=== PATIENT | female | born 1970 | race Caucasian/White ===

== ENCOUNTER → 2017-08-19 07:59 | Outpatient (CLI) | payer BC, SELFPAY ==
--- NOTE | 2017-08-19 08:02 | HPBI_ITS ---
MAMMOGRAPHY - BILATERAL DIAGNOSTIC REASON FOR EXAM: Female, 46 years old. History of dilated subareolar ducts. PERTINENT HISTORY: TECHNIQUE: Digital bilateral breast hung (3D mammographic acquisition) in the CC and MLO projections. 2-D mediolateral oblique (MLO) and craniocaudad (CC) views of both breasts were obtained. CAD: Full Field Digital Mammography with Computer Added Detection was performed. COMPARISON: Comparison is made with prior study dated August 11, 2016 and August 27, 2015. FINDINGS: Breast Composition: The breasts are extremely dense, which lowers the sensitivity of mammography. There are no dominant masses or suspicious calcifications. Stable bilateral benign appearing axillary lymph nodes. No other significant abnormalities are identified. There has been no significant change since the prior study. HPBI/DIAG MAMM W/CAD, BILAT IMPRESSION: Stable bilateral diagnostic mammogram. One year follow-up recommended. (A) ASSESSMENT CATEGORY: BIRADS Category 2: Benign. A letter regarding these results will be sent to the patient by the facility within 30 days. Approximately 10% of breast cancers are not detected by mammography. A normal mammogram should not delay biopsy of a clinically suspicious abnormality. Electronically Signed: Orion Guerra MD at 13:09 EST Tel [phone], Service support ,
== END ==
PROVIDERS: Family Provider Family Medicine; PCP Family Medicine; Visit Provider Family Medicine
DX: Z87.898 Personal history of other specified conditions (principal)
CPT/HCPCS: 77062; 77066; G0279

== ENCOUNTER → 2017-08-26 10:33 | Outpatient (CLI) | payer BC, SELFPAY ==
[2017-08-26 12:22] LABS: Absolute Lymphocyte Count 1.77 X10^3/ul (0.83-4.51); Absolute Neutrophil Count 4.5 X10^3/uL (2.0-7.7); Basophil# 0.02 X10^3/uL; Basophil% 0.3 % (0-1); Eosinophil# 0.15 X10^3/uL; Eosinophils% 2.1 % (0-5); Hematocrit 39.9 % (37-47); Hemoglobin 13.3 g/dl (12.0-15.0); Lymphocyte # 1.77 X10^3/ul (4.0); Lymphocyte % 25.1 % (19-41); Mean Corp Hgb Conc 33.3 g/gl (32-36); Mean Corpuscular Hgb 31.1 pg (27.0-32.0); Mean Corpuscular Volume 93.4 fL (81-99); Mean Platelet Vol. 10.5 fl (6.2-12.0); Monocyte# 0.59 X10^3/uL; Monocyte% 8.4 % (0-10); Neutrophil # 4.51 X10^3/uL (2.7-7.7); Platelet Count 243 K/mm3 (150-450); Red Blood Count 4.27 M/mm3 (4.2-5.4); White Blood Count 7.1 K/mm3 (4.4-11.0)
[2017-08-26 12:31] LABS: POSITIVE COUNT NO; POSITIVE DIFFERENTIAL NO; POSITIVE MORPHOLOGY NO
[2017-08-26 12:37] LABS: ALB/GLOB Ratio 0.8 RATIO (0.9-2.4); AST(SGOT) 15 U/L (15-37); Alanine Aminotransfer ALT/SGPT 19 U/L (13-56); Albumin, Serum 3.6 g/dL (3.2-5.0); Alkaline Phosphatase 47 U/L (45-117); Anion Gap 8 (5-15); BUN 17 mg/dL (7-18); Calcium,Total 8.6 mg/dL (8.5-10.1); Chloride 105 mmol/L (98-107); Cholesterol 148 mg/dL (200); Creatinine, Serum 0.81 mg/dL (0.55-1.02); EST Glomerular Filtration Rate 82 mL/min (>60); Est Glom Filt Rate - Afr Amer 99 mL/min (>60); Globulin 4.3 g/dL (2.2-4.2); Glucose 87 mg/dL (74-106); High Density Lipoprotein 65 mg/dL; Potassium 3.9 mmol/L (3.5-5.1); Protein, Total 7.9 g/dL (6.4-8.2); Sodium Level 139 mmol/L (136-145); Thyroid Stim Hormone (TSH) 1.35 uIU/mL (0.358-3.74); Triglycerides 74 mg/dL; Very Low Density Lipoprotein 15 mg/dL (5-40)
[2017-08-26 12:50] LABS: Erythrocyte Sedimentation Rate 30 mm/hr (0-20)
== END ==
PROVIDERS: Family Provider Family Medicine; PCP Family Medicine; Visit Provider Family Medicine
DX: Z00.00 Encounter for general adult medical examination without abnormal findings (principal); R70.0 Elevated erythrocyte sedimentation rate
CPT/HCPCS: 36415; 80053; 80061; 84443; 85025; 85652

== ENCOUNTER → 2017-09-09 17:19 | Outpatient (CLI) | payer BC, SELFPAY ==
--- NOTE | 2017-09-09 17:21 | RAD_ITS ---
STUDY: X-RAY CHEST REASON FOR EXAM: Female, 46 years old. Cough. TECHNIQUE: PA and lateral views of the chest. COMPARISON: August 17, 2013. FINDINGS: The lungs are clear and expanded. There is no demonstrated pleural abnormality. Normal size heart. Normal mediastinum and rafita. Normal visualized pulmonary arteries. Normal visualized aortic arch and descending thoracic aorta. Normal visualized thoracic spine. Normal visualized ribs, clavicles, and shoulders. There is no demonstrated abnormality of the visualized soft tissue structures of the upper abdomen. RAD/Chest PA and Lateral IMPRESSION: Normal x-ray examination of the chest. Electronically Signed: Jayson Urban MD at 16:03 EST , Service support ,
== END ==
PROVIDERS: Family Provider Family Medicine; PCP Family Medicine; Visit Provider Family Medicine
DX: R05 Cough (principal)
CPT/HCPCS: 71046

== ENCOUNTER → 2017-09-12 10:50 | Outpatient (CLI) | payer BC, SELFPAY ==
--- NOTE | 2017-09-12 10:57 | CT_ITS ---
STUDY: CT ABDOMEN AND PELVIS WITHOUT CONTRAST REASON FOR EXAM: Female, 46 years old. Elevated sedimentation rate. History of right oophorectomy. RADIATION DOSAGE (If Supplied By Facility): CTDIvol = ( 6.89 ) mGy, DLP = ( 366.70 ) mGycm TECHNIQUE: Transaxial images were obtained from the dome of the diaphragm to the symphysis pubis without oral contrast, and without intravenous contrast. Sagittal and coronal images were reconstructed. Individualized dose optimization techniques were used for this CT. COMPARISON: 12/17/2016. FINDINGS: The visualized lung bases are unremarkable. The visualized portions of the heart are within normal limits. Normal liver. Normal gallbladder and extrahepatic biliary system. Normal spleen. Normal pancreas. Normal bilateral adrenal glands. Normal right kidney. Normal left kidney. Normal visualized stomach. Normal small intestine. Normal colon. The appendix is visualized on axial images 126-137 and it appears normal.. Normal abdominal aorta. Normal inferior vena cava. There are small periaortic retroperitoneal lymph nodes which are normal in size and morphology. There is mild infiltration of central mesenteric fat and there are small shotty mesenteric lymph nodes in this region Normal urinary bladder. Contracted uterus is irregular, consistent with a leiomyomatous uterus. Normal abdominal wall. There are multilevel degenerative changes of the visualized lumbar spine. CT/Abdomen/Pelvis without Cont IMPRESSION: Mild infiltration of central mesenteric fat with a small shoddy lymph nodes, suggesting a low-grade mesenteritis. Leiomyomatous uterus. No evidence for diverticulitis or appendicitis. No demonstrated urinary calculi or hydronephrosis. Electronically Signed: Carl Jalloh MD at 6:52 EST , Service support ,
== END ==
PROVIDERS: Family Provider Family Medicine; PCP Family Medicine; Visit Provider Family Medicine
DX: D25.9 Leiomyoma of uterus, unspecified (principal); R70.0 Elevated erythrocyte sedimentation rate
CPT/HCPCS: 74176

== ENCOUNTER → 2017-09-21 08:36 | Outpatient (CLI) | payer BC, SELFPAY ==
--- NOTE | 2017-09-21 08:40 | RAD_ITS ---
PROCEDURE: SMALL BOWEL SERIES DATE OF EXAMINATION: September 21, 2017. INDICATION: Female, 46 years old. Elevated sedimentation rate. PHYSICIAN: Orion Guerra M.D. FLUOROSCOPY TIME (if supplied): (0:48) minutes/seconds TECHNIQUE: Radiographic and fluoroscopic images were taken of the small intestine following the ingestion of barium. COMPARISON: None. FINDINGS: A preliminary supine KUB was obtained. There is an unremarkable bowel gas pattern. Fecal material is present throughout the colon. The lung bases are unremarkable. The osseous structures are normal. The patient orally ingested approximately 12 ounces of thin barium Normal visualized fundus, body, and antrum of the stomach. Normal duodenal bulb, C-loop, and proximal jejunum. Normal visualized mucosal folds of the jejunum and ileum. There are no demonstrated dilatations, strictures, or masses of the small intestine. There is no mass displacement of the loops of small intestine. There is a normal motor pattern with barium reaching the colon within approximately 30 minutes. Spot films under fluoroscopic observation demonstrated a normal terminal ileum and ileocecal valve. RAD/Small Bowel Series Only IMPRESSION: Normal small bowel series. Electronically Signed: Orion Guerra MD at 13:39 EST Tel [phone], Service support ,
== END ==
PROVIDERS: Family Provider Family Medicine; PCP Family Medicine; Visit Provider Family Medicine
DX: R93.5 Abnormal findings on diagnostic imaging of other abdominal regions, including retroperitoneum (principal)
CPT/HCPCS: 74250

== ENCOUNTER → 2018-01-23 08:30 | Outpatient (CLI) | payer BC, SELFPAY ==
[2018-01-23 09:29] LABS: hCG Titer Quant., Serum 3 mIU/mL (<9 non-preg)
== END ==
PROVIDERS: Family Provider Family Medicine; PCP Family Medicine; Visit Provider Obstetrics & Gynecology
DX: N91.2 Amenorrhea, unspecified (principal)
CPT/HCPCS: 36415; 84702

== ENCOUNTER 2018-02-01 07:44 | Emergency (ER) | payer BC, SELFPAY ==
[2018-02-01] VITALS (7 sets, daily range): BP systolic 132–172; BP diastolic 72–92; PULSE 71–88; RESP 16–24; TEMP 36.8; O2SAT 99–100; BMI 24.6
--- NOTE | 2018-02-01 07:55 | US_ITS ---
STUDY: ULTRASOUND OF THE FEMALE PELVIS - COMPLETE REASON FOR EXAM: Female, 47 years old. Generalized intense pelvic pain and low back pain for 2 days. LMP: December 06, 2017. TECHNIQUE: Transvaginal TECHNICAL QUALITY: Adequate. COMPARISON: None. FINDINGS: The uterus is anteverted and is in a midline position. The uterus measures 7.9 cm x 6.8 cm x 4.5 cm. There is a Nabothian cyst of the cervix. The endometrium measures 1.1 mm in thickness, and is heterogeneous (striated). There is no demonstrated endometrial mass. There are 3 uterine fibroids. The largest measures 3.1 cm x 2.2 cm x 1.7 cm. I.U.D. - The patient does not have an I.U.D. The right ovary is visualized. The right ovary measures 4.9 cm x 4.1 cm x 3.9 cm. There is a 4.4 cm x 3.4 cm x 3 cm right ovarian cyst. Adjacent to this, there is a 4.8 cm x 3.1 Alex by 3.1 cm complex cystic mass. This may represent either an endometrioma or possible tubo-ovarian abscess. Clinical correlation is recommended. There is normal arterial and normal venous vascularity. The left ovary is non-visualized. There is minimal fluid in the cul-de-sac. The pre void volume of the bladder was 90 ml. The post void volume of the bladder was ml. Polycystic ovary disease: No. US/Transvaginal Non- IMPRESSION: Fibroid uterus. Findings suggestive of a right ovarian cyst as well as a complex cystic mass in the right ovary as described. Endometriosis or tubo-ovarian abscess should be ruled. Small amount of free fluid in the cul-de-sac. Electronically Signed: Orion Guerra MD at 10:15 EDT Tel [phone], Service support ,
--- NOTE | 2018-02-01 07:57 | ED.VISSUMM ---
- ER Visit Summary Date of Service: 02/01/18 Chief Complaint: Pelvic pain History of Present Illness: The patient is a 47 F presenting with pelvic pain and low back pain. She states this started yesterday but worsened this morning. She has had no vaginal bleeding. Her last menstrual period was 50 days ago. She is undergoing intermittent fertility treatments. She has a history of previous ovarian cyst. She did karate yesterday and was thrown a few times. She denies specific injury. She states she has had nausea for a few weeks. She denies vomiting or diarrhea. Denies urinary complaints. Physical Examination: Vitals are stable. Patient is afebrile. Alert no acute distress. HEENT exam is unremarkable. Neck is supple. Lungs are clear and equal bilaterally. Heart is regular rate and rhythm. Abdomen is soft bilateral lower quadrant tenderness, no rebound or guarding. Pelvic: No cervical motion tenderness, right adnexal tenderness. Back: bilateral lower lumbar paraspinal tenderness Extremities are unremarkable. Skin is warm and dry. No focal neurologic deficit. Remainder of exam is unremarkable. Emergency Department Course and Treatment: Patient is given morphine, Zofran. CBC, chemistries unremarkable. Urinalysis is unremarkable. HCG negative. Patient continues to have pain and was given Valium. Pelvic ultrasound shows Fibroid uterus. Findings suggestive of a right ovarian cyst as well as a complex cystic mass in the right ovary as described. Endometriosis or tubo-ovarian abscess should be ruled. Small amount of free fluid in the cul-de-sac. Discussed with Dr. Barraza her fertility specialist. She will be transferred [facility] ED by private vehicle for [employer] resident evaluation. Disposition: Transfer [facility] Impression: Right ovarian cystic mass This note was generated with [employer] dictation software. It may contain incorrect words, spelling, and punctuation that were not noted in review of the chart prior to signing ED Disposition - Plan for ED Patient: Disposition: Home or Assisted Living Chief Complaint: Other, Pain/Inj Referrals: Gerardo Parker MD [Primary Care Provider] -
--- NOTE | 2018-02-01 08:00 | ED.DCSUM_ITS ---
- ER Visit Summary Date of Service: 02/01/18 Chief Complaint: Pelvic pain History of Present Illness: The patient is a 47 F presenting with pelvic pain and low back pain. She states this started yesterday but worsened this morning. She has had no vaginal bleeding. Her last menstrual period was 50 days ago. She is undergoing intermittent fertility treatments. She has a history of previous ovarian cyst. She did karate yesterday and was thrown a few times. She denies specific injury. She states she has had nausea for a few weeks. She denies vomiting or diarrhea. Denies urinary complaints. Physical Examination: Vitals are stable. Patient is afebrile. Alert no acute distress. HEENT exam is unremarkable. Neck is supple. Lungs are clear and equal bilaterally. Heart is regular rate and rhythm. Abdomen is soft bilateral lower quadrant tenderness, no rebound or guarding. Pelvic: No cervical motion tenderness, right adnexal tenderness. Back: bilateral lower lumbar paraspinal tenderness Extremities are unremarkable. Skin is warm and dry. No focal neurologic deficit. Remainder of exam is unremarkable. Emergency Department Course and Treatment: Patient is given morphine, Zofran. CBC, chemistries unremarkable. Urinalysis is unremarkable. HCG negative. Patient continues to have pain and was given Valium. Pelvic ultrasound shows Fibroid uterus. Findings suggestive of a right ovarian cyst as well as a complex cystic mass in the right ovary as described. Endometriosis or tubo- ovarian abscess should be ruled. Small amount of free fluid in the cul-de-sac. Discussed with Dr. Barraza her fertility specialist. She will be transferred [facility] ED by private vehicle for [employer] resident evaluation. Disposition: Transfer [facility] Impression: Right ovarian cystic mass This note was generated with [employer] User [place] dictation software. It may contain incorrect words, spelling, and punctuation that were not noted in review of the chart prior to signing ED Disposition - Plan for ED Patient: Disposition: Home or Assisted Living Chief Complaint: Other, Pain/Inj Referrals: Gerardo Parker MD [Primary Care Provider] -
[2018-02-01] MEDS: Morphine 4 MG/ML Syringe IV (08:03)
[2018-02-01] MEDS: Ondansetron ODT 4 MG Tablet PO (08:04)
[2018-02-01 08:10] LABS: Absolute Lymphocyte Count 2.15 X10^3/ul (0.83-4.51); Absolute Neutrophil Count 4.2 X10^3/uL (2.0-7.7); Basophil# 0.02 X10^3/uL; Basophil% 0.3 % (0-1); Eosinophil# 0.21 X10^3/uL; Hematocrit 42.8 % (37-47); Hemoglobin 13.8 g/dl (12.0-15.0); Lymphocyte # 2.15 X10^3/ul (4.0); Lymphocyte % 30.8 % (19-41); Mean Corp Hgb Conc 32.2 g/gl (32-36); Mean Corpuscular Hgb 30.1 pg (27.0-32.0); Mean Corpuscular Volume 93.2 fL (81-99); Mean Platelet Vol. 9.8 fl (6.2-12.0); Monocyte# 0.41 X10^3/uL; Monocyte% 5.9 % (0-10); Neutrophil # 4.17 X10^3/uL (2.7-7.7); Neutrophil % 59.9 % (47-70); POSITIVE COUNT NO; POSITIVE DIFFERENTIAL NO; POSITIVE MORPHOLOGY NO; Platelet Count 277 K/mm3 (150-450); RBC Distribution Width CV 13.4 % (11.6-14.6); RBC Distribution Width SD 45.7 fl (35.1-43.9); Red Blood Count 4.59 M/mm3 (4.2-5.4)
[2018-02-01 08:18] LABS: ALB/GLOB Ratio 0.9 RATIO (0.9-2.4); AST(SGOT) 21 U/L (15-37); Alanine Aminotransfer ALT/SGPT 18 U/L (13-56); Albumin, Serum 4.2 g/dL (3.2-5.0); Alkaline Phosphatase 47 U/L (45-117); Anion Gap 6 (5-15); BUN 16 mg/dL (7-18); BUN/Creat Ratio 20.4 RATIO (10-20); Calcium,Total 9.6 mg/dL (8.5-10.1); Chloride 107 mmol/L (98-107); Creatinine, Serum 0.78 mg/dL (0.55-1.02); EST Glomerular Filtration Rate 84 mL/min (>60); Est Glom Filt Rate - Afr Amer 102 mL/min (>60); Estimated Creatinine Clearance 75.34 ml/min; Globulin 4.6 g/dL (2.2-4.2); Glucose 101 mg/dL (74-106); Potassium 4.1 mmol/L (3.5-5.1); Protein, Total 8.8 g/dL (6.4-8.2); Sodium Level 140 mmol/L (136-145)
[2018-02-01 08:24] LABS: Red Blood Cells-Urine 0 SEEN /hpf (0-5); White Blood Cells 0 SEEN /hpf (0-5)
[2018-02-01 08:25] LABS: Pregnancy, Serum, hCG Quali. NEGATIVE Negative (0-9 Nonpreg)
[2018-02-01 08:27] LABS: Color, Urine Yellow (Yellow); Glucose, Dipstick Normal (Normal); Ketone-Dipstick Negative (Negative); Leukocyte Esterase-Dipstick Negative /ul (Negative); Nitrite-Dipstick Negative (Negative); Occult Blood-Urine Negative /ul (Negative); Protein-Dipstick Negative (Negative); Specific Gravity, Urine 1.015 (1.002-1.030); Urine Bilirubin Dipstick Negative (Negative); Urine Clarity Sl. Cloudy (Clear); Urine Urobilinogen Normal (Normal)
[2018-02-01 08:42] LABS: Bacteria RARE /hpf (None Seen); Mucous, Urine RARE /hpf (<or=2+); Squamous Epithelial Cells - UA 0-5 SEEN /hpf (5-10)
[2018-02-01] MEDS: diazePAM 5 MG Tablet PO (08:48)
== END 2018-02-01 13:04 | disposition home or self-care (01) ==
PROVIDERS: Emergency Provider Emergency Medicine; Family Provider Family Medicine; PCP Family Medicine
DX: N83.291 Other ovarian cyst, right side (principal); D25.9 Leiomyoma of uterus, unspecified
CPT/HCPCS: 76830; 80053; 81001; 84703; 85025; 93976; 96374; 96375; 99285; A4216

== ENCOUNTER 2018-02-25 11:00 | Emergency (ER) | payer BC, SELFPAY ==
[2018-02-25 11:01] VITALS: BP 112/64; PULSE 106; RESP 18; TEMP 37.4; O2SAT 99; BMI 24.6
--- NOTE | 2018-02-25 11:17 | CT_ITS ---
STUDY: CT ABDOMEN AND PELVIS WITHOUT CONTRAST REASON FOR EXAM: Female, 47 years old. Abdominal pain status post left oophorectomy one week ago. RADIATION DOSAGE (If Supplied By Facility): CTDIvol = ( 6.61 ) mGy, DLP = ( 331.86 ) mGycm TECHNIQUE: Transaxial images were obtained from the dome of the diaphragm to the symphysis pubis without oral contrast, and without intravenous contrast. Sagittal and coronal images were reconstructed. Individualized dose optimization techniques were used for this CT. COMPARISON: CT abdomen/pelvis 09/12/2017. FINDINGS: CT abdomen without IV contrast. The visualized lung bases appear clear of focal consolidation/pleural effusion. The visualized portions of the heart appear within normal limits. However, right anterior subdiaphragmatic free intraperitoneal air collection is seen anterior to the bharti hepatis, approximately 1.6 x 4.8 cm. Other smaller scattered air collections are seen adjacent which may be related to history given of prior pelvic surgery but cannot exclude a perforated bowel without clinical correlation. Liver appears borderline enlarged, 18.9 cm sagittal without large gross bulky lesion identified. Normal gallbladder and extrahepatic biliary system. Normal spleen. Normal pancreas. Normal bilateral adrenals. Normal right kidney. Normal left kidney. Normal visualized stomach. Normal duodenum. Mildly enlarged proximal jejunum noted anterior to the left kidney measuring up to 3.2 cm diameter. Within the left anterolateral upper pelvis, descending colon wall thickening and pericolonic effacement of the fat planes are seen. More superiorly, air-fluid levels are noted within the descending colon with moderate wall thickening image #104/182 series #2. The appendix is not definitively visualized. Within the lower pelvis, rounded fluid attenuating areas seen, approximate 8.1 x 10.4 cm in expected location of the uterus, uterus previously measured approximately 6.5 x 10.2 cm. On the current study, the central Hounsfield units is approximate 36 which may represent hemorrhage from an old hematoma possibly related to surgery. Within this finding is a right oval fairly homogeneous subtle the lower attenuated area, may represent a right ovarian cyst, approximately 2.0 x 1.3 cm which is not well seen previously and show signs central Hounsfield units 14.8 suggested an ovarian follicular cyst. Normal abdominal aorta. Normal inferior vena cava. Normal retroperitoneum. Visualized abdomen/pelvis/and lower regions show no large gross bulky adenopathy. Distended urinary bladder without large gross bulky focal lesion seen or intraluminal high attenuation calculus. Nonacute abdominal wall without ventral/ventral bowel herniation identified. No dehiscence identified. Nonacute osseous structures. Severe degenerative L5-S1 noted disc space narrowing, endplate sclerosis and moderate anterior and posterior disc protrusion/osteophyte complexes. Mild scoliosis apex left L2-L3. IMPRESSION: Small amount of upper abdomen anterior free intraperitoneal air collections, cannot exclude perforated bowel but finding may be related to prior pelvic surgery. Clinical correlation recommended. Abnormal central pelvis with fluid possibly from hematoma/seroma likely related to recent surgery but cannot exclude mass. If clinically indicated, ultrasound pelvis with transabdominal and transvaginal imaging may be more helpful. Descending colitis/diverticulitis until proven otherwise, no adjacent tiny air collections suggest local perforation. Clinical correlation recommended. Mild proximal jejunitis, nonspecific. Right ovarian follicular cysts suggested. Again, ultrasound pelvis may be more helpful. Limitations above including but not limited to lack of IV/GI contrast. Electronically Signed: Yair Sky, at 13:25 EDT Tel , Service support , CT/Abdomen/Pelvis without Cont
--- NOTE | 2018-02-25 11:18 | ED.VISSUMM ---
- ER Visit Summary Date of Service: 02/25/18 Chief Complaint: [] Crampy lower abdominal pain better with bowel movements and passing gas History of Present Illness: The patient is a 47 F [] she reports she had pelvic surgery by Dr. Barraza at [facility] about 1 week ago she indicates she had a cyst removed from 1 of her ovaries, and a fibroid removed from her uterus, she reports on Thursday few days postop began having crampy lower abdominal pain that was better when she could pass gas and have bowel movements the pain is persisted today she spoke with Dr. Barraza and was told to come to the hospital for evaluation she has had no vomiting no fever her urinary habits have been normal she had a large bowel movement today that did improve her symptoms, she has had no other complaints and she denies any other past history Physical Examination: [] Her temperature is 99 she is in no distress she is complaining of lower abdominal pain HEENT head neck chest exam unremarkable abdomen is soft the port sites to the abdominal wall are unremarkable there are minimally tender with no drainage or signs of infection she has a vague discomfort to her lower abdominal area suprapubic right and left quadrants no rebound guarding organomegaly the back is unremarkable she is moving all 4 extremities without difficulty, the patient declined rectal exam Test Results: [] Emergency Department Course and Treatment: [] Screening labs IV fluids pain management CT White count is 17,000 the rest of her labs are generally unremarkable, see those reports, the CT abdomen and pelvis shows central abdomen fluid collection see that report the radiologist cannot further describe the fluid collection the differential is rather broad given her postop status Remained hemodynamically stable here in the emergency department she is required multiple doses of morphine, we did start IV antibiotics, the patient does not feel well enough to be discharged to follow-up as an outpatient, I spoke with Dr. Barraza her primer waterproofing machine adjuster at [facility] discussed the case with him in detail he indicated the patient could be transferred to [facility] emergency department for further CLINCHING MACHINE OPERATOR evaluation, I explained discussed and explained this to the patient she insisted on being transferred via private car so once all of her IV fluid antibiotic therapies are completed her IV will be hep-locked and she will be instructed to go directly to [facility] emergency department for further management and evaluation Treatment Plan: [] Disposition: [] Transfer to [facility] emergency department by private vehicle at patient request Impression: [] Intractable postoperative pain, fluid collection in central pelvis on CT etiology not entirely clear This note was generated with O[employer]X dictation software. It may contain incorrect words, spelling, and punctuation that were not noted in review of the chart prior to signing ED Disposition - Plan for ED Patient: Chief Complaint: Abd Pain Referrals: Gerardo Parker MD [Primary Care Provider] -
[2018-02-25 11:47] LABS: Absolute Lymphocyte Count 1.47 X10^3/ul (0.83-4.51); Absolute Neutrophil Count 14.1 X10^3/uL (2.0-7.7); Basophil# 0.02 X10^3/uL; Basophil% 0.1 % (0-1); Eosinophils% 1.8 % (0-5); Hematocrit 26.9 % (37-47); Hemoglobin 8.8 g/dl (12.0-15.0); Lymphocyte # 1.47 X10^3/ul (4.0); Lymphocyte % 8.6 % (19-41); Mean Corp Hgb Conc 32.7 g/gl (32-36); Mean Corpuscular Hgb 29.9 pg (27.0-32.0); Mean Corpuscular Volume 91.5 fL (81-99); Mean Platelet Vol. 8.5 fl (6.2-12.0); Monocyte# 1.19 X10^3/uL; Monocyte% 6.9 % (0-10); Neutrophil # 14.12 X10^3/uL (2.7-7.7); Neutrophil % 82.4 % (47-70); POSITIVE COUNT NO; POSITIVE DIFFERENTIAL NO; POSITIVE MORPHOLOGY NO; Platelet Count 350 K/mm3 (150-450); RBC Distribution Width CV 13.7 % (11.6-14.6); RBC Distribution Width SD 45.7 fl (35.1-43.9); Red Blood Count 2.94 M/mm3 (4.2-5.4); White Blood Count 17.1 K/mm3 (4.4-11.0)
[2018-02-25] MEDS: 0.9% Normal Saline 1,000 ML 1000 ML IV (11:49)
[2018-02-25] MEDS: morphine 8 MG/ML Syringe IV ×2 (11:49→14:27)
[2018-02-25] MEDS: Mag Hydrox/Al Hydrox/Simeth 30 ML UDC PO (11:49)
[2018-02-25] MEDS: Ondansetron 4 MG/2 ML Vial IV (11:49)
[2018-02-25 11:50] LABS: Mucous, Urine 0 SEEN /hpf (<or=2+)
[2018-02-25 11:52] LABS: Color, Urine Yellow (Yellow); Glucose, Dipstick Normal (Normal); Ketone-Dipstick 15 mg/dl (Negative); Leukocyte Esterase-Dipstick 25 /ul (Negative); Nitrite-Dipstick Negative (Negative); Occult Blood-Urine 50 /ul (Negative); Protein-Dipstick 15 mg/dl (Negative); Urine Bilirubin Dipstick Negative (Negative); Urine Clarity Sl. Cloudy (Clear); Urine Urobilinogen Normal (Normal); Urine pH 6.5 (5.0 - 8.0)
[2018-02-25 12:00] LABS: AST(SGOT) 22 U/L (15-37); Alanine Aminotransfer ALT/SGPT 33 U/L (13-56); Albumin, Serum 2.7 g/dL (3.2-5.0); Alkaline Phosphatase 73 U/L (45-117); Anion Gap 6 (5-15); BUN 9 mg/dL (7-18); BUN/Creat Ratio 13.7 RATIO (10-20); Bilirubin, Direct 0.29 mg/dL (0.00-0.30); Calcium,Total 8.4 mg/dL (8.5-10.1); Chloride 103 mmol/L (98-107); Creatinine, Serum 0.66 mg/dL (0.55-1.02); EST Glomerular Filtration Rate 104 mL/min (>60); Est Glom Filt Rate - Afr Amer 125 mL/min (>60); Estimated Creatinine Clearance 89.04 ml/min; Globulin 5.1 g/dL (2.2-4.2); Glucose 108 mg/dL (74-106); Lipase 97 U/L (73-393); Potassium 3.2 mmol/L (3.5-5.1); Protein, Total 7.8 g/dL (6.4-8.2); Sodium Level 139 mmol/L (136-145)
[2018-02-25 12:03] LABS: Bacteria 1+ /hpf (None Seen); Red Blood Cells-Urine 0-5 SEEN /hpf (0-5); Squamous Epithelial Cells - UA 0-5 SEEN /hpf (5-10); White Blood Cells 0-5 SEEN /hpf (0-5)
--- NOTE | 2018-02-25 14:37 | DCINST.ED_ITS ---
ED Disposition - Plan for ED Patient: Chief Complaint: Abd Pain Instructions: ED Abdominal Pain Unkn Cause Referrals: Gerardo Parker MD [Primary Care Provider] - Additional Instructions: Go directly to day to [facility] emergency department to be evaluated by Dr. Barraza's team
[2018-02-25 15:21] VITALS: BP 126/65; PULSE 105; RESP 18; O2SAT 95
[2018-02-25 15:22] VITALS: BP 126/65; PULSE 105; RESP 18; O2SAT 95
== END 2018-02-25 15:24 | disposition short-term general hospital (02) ==
PROVIDERS: Emergency Provider Emergency Medicine; Family Provider Family Medicine; PCP Family Medicine
DX: R10.32 Left lower quadrant pain (principal); R10.31 Right lower quadrant pain; G89.18 Other acute postprocedural pain
CPT/HCPCS: 74176; 80048; 80076; 81001; 83690; 85025; 96361; 96365; 96375; 96376; 99284; J7030; J7040; A4216; J2405

== ENCOUNTER → 2018-10-23 08:31 | Outpatient (CLI) | payer BC, SELFPAY ==
--- NOTE | 2018-10-23 08:51 | BI_ITS ---
MAMMOGRAPHY - BILATERAL SCREENING REASON FOR EXAM: Female, 47 years old. Routine annual screening examination. PERTINENT HISTORY: Non-contributory. TECHNIQUE: Digital bilateral breast hung (3D mammographic acquisition) in the CC and MLO projections. 2-D mediolateral oblique (MLO) and craniocaudad (CC) views of both breasts were obtained. CAD: Full Field Digital Mammography with Computer Added Detection was performed. COMPARISON: Comparison is made with prior study dated February 16, 2018 and August 11, 2016. FINDINGS: Breast Composition: The breasts are extremely dense, which lowers the sensitivity of mammography. There are no dominant masses or suspicious calcifications. Stable small bilateral axillary lymph nodes. No other significant abnormalities are identified. There has been no significant change since the prior study. BI/SCREENING MAMM (CAD), BILAT IMPRESSION: Stable bilateral screening mammogram. Yearly follow-up mammogram recommended. (A) ASSESSMENT CATEGORY: BIRADS Category 2: Benign. A letter regarding these results will be sent to the patient by the facility within 30 days. Approximately 10% of breast cancers are not detected by mammography. A normal mammogram should not delay biopsy of a clinically suspicious abnormality. [id number] Electronically Signed: Orion Guerra, at 9:03 EDT , Service support ,
== END ==
PROVIDERS: Family Provider Family Medicine; PCP Family Medicine; Referring Provider Family Medicine; Visit Provider Family Medicine
DX: Z12.31 Encounter for screening mammogram for malignant neoplasm of breast (principal)
CPT/HCPCS: 77063; 77067

== ENCOUNTER → 2018-11-02 09:29 | Outpatient (CLI) | payer BC, SELFPAY ==
[2018-11-02 10:58] LABS: Absolute Lymphocyte Count 2.19 X10^3/ul (0.83-4.51); Absolute Neutrophil Count 3.5 X10^3/uL (2.0-7.7); Basophil# 0.02 X10^3/uL; Basophil% 0.3 % (0-1); Eosinophil# 0.25 X10^3/uL; Eosinophils% 3.9 % (0-5); Hematocrit 40.7 % (37-47); Hemoglobin 13.6 g/dl (12.0-15.0); Lymphocyte # 2.19 X10^3/ul (4.0); Lymphocyte % 34.3 % (19-41); Mean Corp Hgb Conc 33.4 g/gl (32-36); Mean Corpuscular Hgb 30.8 pg (27.0-32.0); Mean Corpuscular Volume 92.3 fL (81-99); Mean Platelet Vol. 10.1 fl (6.2-12.0); Monocyte# 0.43 X10^3/uL; Monocyte% 6.7 % (0-10); Neutrophil # 3.48 X10^3/uL (2.7-7.7); Neutrophil % 54.6 % (47-70); Platelet Count 260 K/mm3 (150-450); RBC Distribution Width CV 13.1 % (11.6-14.6); RBC Distribution Width SD 43.5 fl (35.1-43.9); Red Blood Count 4.41 M/mm3 (4.2-5.4); White Blood Count 6.4 K/mm3 (4.4-11.0)
[2018-11-02 11:04] LABS: POSITIVE COUNT NO; POSITIVE DIFFERENTIAL NO; POSITIVE MORPHOLOGY NO
[2018-11-02 11:37] LABS: AST(SGOT) 19 U/L (15-37); Alanine Aminotransfer ALT/SGPT 15 U/L (13-56); Albumin, Serum 3.9 g/dL (3.2-5.0); Alkaline Phosphatase 44 U/L (45-117); Anion Gap 4 (5-15); BUN 16 mg/dL (7-18); BUN/Creat Ratio 23.1 RATIO (10-20); Calcium,Total 8.4 mg/dL (8.5-10.1); Chloride 107 mmol/L (98-107); Cholesterol 208 mg/dL (200); Creatinine, Serum 0.69 mg/dL (0.55-1.02); EST Glomerular Filtration Rate 97 mL/min (>60); Est Glom Filt Rate - Afr Amer 117 mL/min (>60); Glucose 84 mg/dL (74-106); High Density Lipoprotein 80 mg/dL; Potassium 4.1 mmol/L (3.5-5.1); Protein, Total 7.9 g/dL (6.4-8.2); Sodium Level 138 mmol/L (136-145); Thyroid Stim Hormone (TSH) 2.07 uIU/mL (0.358-3.74); Triglycerides 111 mg/dL; Very Low Density Lipoprotein 22 mg/dL (5-40)
== END ==
PROVIDERS: Family Provider Family Medicine; PCP Family Medicine; Referring Provider Family Medicine; Visit Provider Family Medicine
DX: Z00.00 Encounter for general adult medical examination without abnormal findings (principal); A41.9 Sepsis, unspecified organism
CPT/HCPCS: 36415; 80053; 80061; 84443; 85025

== ENCOUNTER → 2019-04-29 08:39 | Outpatient (CLI) | payer BC, SELFPAY ==
[2019-04-29 10:17] LABS: Erythrocyte Sedimentation Rate 11 mm/hr (0-20)
[2019-04-29 10:18] LABS: Hematocrit 39.7 % (37-47); Hemoglobin 12.9 g/dL (12.0-15.0); Mean Corp Hgb Conc 32.5 g/dL (32-36); Mean Corpuscular Hgb 30.7 pg (27.0-32.0); Mean Corpuscular Volume 94.5 fL (81-99); Mean Platelet Vol. 10.1 fl (6.2-12.0); Platelet Count 264 K/mm3 (150-450); RBC Distribution Width CV 12.9 % (11.6-14.6); RBC Distribution Width SD 44.7 fl (35.1-43.9); White Blood Count 8.1 K/mm3 (4.4-11.0)
[2019-04-29 10:53] LABS: Progesterone Level 1.13 ng/mL (See Comment)
[2019-04-29 10:55] LABS: ALB/GLOB Ratio 0.9 RATIO (0.9-2.4); AST(SGOT) 22 U/L (15-37); Alanine Aminotransfer ALT/SGPT 19 U/L (13-56); Albumin, Serum 3.7 g/dL (3.2-5.0); Alkaline Phosphatase 43 U/L (45-117); Anion Gap 9 (5-15); BUN 19 mg/dL (7-18); BUN/Creat Ratio 25.6 RATIO (10-20); CRP < 2.90 mg/L (0.0-3.0); Calcium,Total 8.9 mg/dL (8.5-10.1); Chloride 104 mmol/L (98-107); Creatinine, Serum 0.74 mg/dL (0.55-1.02); EST Glomerular Filtration Rate 89 mL/min (>60); Est Glom Filt Rate - Afr Amer 108 mL/min (>60); Estradiol 81.6 pg/mL; Follicle Stimulating Hormone 38.4 mIU/mL; Globulin 3.9 g/dL (2.2-4.2); Glucose 96 mg/dL (74-106); Luteinizing Hormone 55.6 mIU/mL; Protein, Total 7.6 g/dL (6.4-8.2); Sodium Level 138 mmol/L (136-145); Thyroid Stim Hormone (TSH) 1.17 uIU/mL (0.358-3.74)
[2019-05-02 12:38] LABS: DHEA Sulfate 92.8 ug/dL (41.2-243.7)
== END ==
PROVIDERS: Family Provider Family Medicine; PCP Family Medicine; Referring Provider Family Medicine; Visit Provider Family Medicine
DX: N91.1 Secondary amenorrhea (principal); R10.30 Lower abdominal pain, unspecified
CPT/HCPCS: 36415; 80053; 82533; 82627; 82670; 83001; 83002; 84144; 84443; 85027; 85652; 86140; 82626

== ENCOUNTER → 2019-05-05 17:45 | Outpatient (CLI) | payer BC, SELFPAY ==
--- NOTE | 2019-05-05 17:58 | CT_ITS ---
HISTORY: Lower abdomen pain/pulling sensation when bending over. Hx ovarian cysts with prior removal, left oophorectomy. TECHNIQUE: Helically acquired images were obtained of the abdomen and pelvis following the intravenous administration of 100mL ml of Isovue 300 Iodinated contrast. 2D reformats. Oral contrast was administered. A radiation dose optimization technique was used for this scan. COMPARISON: Of the patient's 18 previous radiographic exams at this institution since April 2012, the most recent of several CT scans is from February 25, 2018 FINDINGS: # of images incl. paperwork: [id number] LUNG BASES: Clear. CT abdomen: Bones are unremarkable. The gallbladder remains. Liver, spleen, pancreas, and adrenal glands, are normal. The kidneys are normal. The aorta is normal. CT pelvis: Trace pelvic ascites is present. The the uterus is normal. The right ovary is enlarged. The right ovary measures 5.4 x 4.9 x 5.9 cm. Within the right ovary there is a rim-enhancing hypodense structure measuring 3.5 cm in long axis dimensions. . The appendix is normal. Series 2 image 90. The bladder is decompressed. Bowel-gas pattern is normal. CT/Abdomen/Pelvis WITH Contrast IMPRESSION: Enlarged right ovary 5.4 x 4.9 x 5.9 cm. Within the right ovary there is a hypodense structure measuring 3.5 cm in long axis dimensions consistent with a right ovarian follicle or cyst. This lesion was present on the previous study of February 25, 2018 but less well discerned due to the absence of intravenous contrast. This lesion I think was present on September 12, 2017 study, but smaller and not as well discerned due to the absence of intravenous contrast. Several lesions were present on the right ovary on the December 17, 2016 study. This therefore is an enlarging right ovarian cyst. Neoplasia increases the possibility with an enlarging right ovarian cystic lesion that is been present at least since August 23, 2017. Individualized dose optimization techniques were used for this CT. at 0607 Reported and signed by: Jeffrey Joshi MD Electronically Signed: Jeffrey Joshi MD at 6:06 EDT Tel , Service support ,
== END ==
PROVIDERS: Family Provider Family Medicine; PCP Family Medicine; Referring Provider Family Medicine; Visit Provider Family Medicine
DX: R10.30 Lower abdominal pain, unspecified (principal)
CPT/HCPCS: 74177; Q9967

== ENCOUNTER → 2019-09-27 08:02 | Outpatient (CLI) | payer BC, SELFPAY ==
[2019-09-27 09:34] LABS: Glucose GTT- Fasting 100 mg/dL (74-106)
[2019-09-27 09:36] LABS: ALB/GLOB Ratio 0.8 RATIO (0.9-2.4); AST(SGOT) 15 U/L (15-37); Alanine Aminotransfer ALT/SGPT 22 U/L (13-56); Albumin, Serum 3.4 g/dL (3.2-5.0); Alkaline Phosphatase 43 U/L (45-117); Anion Gap 5 (5-15); BUN 19 mg/dL (7-18); BUN/Creat Ratio 23.5 RATIO (10-20); Calcium,Total 8.8 mg/dL (8.5-10.1); Chloride 112 mmol/L (98-107); Cholesterol 174 mg/dL (200); Creatinine, Serum 0.81 mg/dL (0.55-1.02); EST Glomerular Filtration Rate 81 mL/min (>60); Est Glom Filt Rate - Afr Amer 98 mL/min (>60); Glucose 100 mg/dL (74-106); High Density Lipoprotein 67 mg/dL; Potassium 4.2 mmol/L (3.5-5.1); Protein, Total 7.4 g/dL (6.4-8.2); Sodium Level 142 mmol/L (136-145); Triglycerides 134 mg/dL; Very Low Density Lipoprotein 27 mg/dL (5-40)
[2019-09-27 09:38] LABS: Insulin 7.7 mU/L (2.6-37.6)
[2019-09-27 09:58] LABS: Glucose GTT- 1 Hour 103 mg/dL (120-170)
[2019-09-27 10:01] LABS: Glucose GTT-30 minutes 151 mg/dL (110-170)
[2019-09-27 10:08] LABS: Insulin 61.4 mU/L (2.6-37.6)
[2019-09-27 11:03] LABS: Glucose GTT- 2 Hour 94 mg/dL (70-120)
[2019-09-27 12:06] LABS: Glucose GTT- 3 Hour 67 mg/dL (74-106)
[2019-09-27 12:54] LABS: Glucose GTT- 4 Hour 87 mg/dL (74-106)
[2019-09-27 14:10] LABS: Glucose GTT- 5 Hour 95 mg/dL (74-106)
== END ==
PROVIDERS: PCP Family Medicine; Referring Provider Family Medicine; Visit Provider Family Medicine
DX: Z00.00 Encounter for general adult medical examination without abnormal findings (principal); R73.03 Prediabetes
CPT/HCPCS: 36415; 80053; 80061; 82951; 82952; 83525

== ENCOUNTER → 2019-10-25 10:39 | Outpatient (CLI) | payer BC, SELFPAY ==
--- NOTE | 2019-10-25 10:48 | BI_ITS ---
MAMMOGRAPHY - BILATERAL SCREENING REASON FOR EXAM: Female, 48 years old. Routine annual screening examination. PERTINENT HISTORY: Non-contributory. TECHNIQUE: Digital bilateral breast lyssa (3D mammographic acquisition) in the CC and MLO projections. 2-D mediolateral oblique (MLO) and craniocaudad (CC) views of both breasts were obtained. CAD: Full Field Digital Mammography with Computer Added Detection was performed. COMPARISON: Comparison is made with prior study dated October 23, 2018 and August 19, 2017. FINDINGS: Breast Composition: The breasts are extremely dense, which lowers the sensitivity of mammography. There are no dominant masses or suspicious calcifications. Benign appearing bilateral axillary lymph nodes. No other significant abnormalities are identified. There has been no significant change since the prior study. BI/SCREEN MAMM (CAD) W/LYSSA BILAT IMPRESSION: Stable bilateral screening mammogram. Yearly follow-up mammogram recommended. (A) ASSESSMENT CATEGORY: BIRADS Category 2: Benign. A letter regarding these results will be sent to the patient by the facility within 30 days. Approximately 10% of breast cancers are not detected by mammography. A normal mammogram should not delay biopsy of a clinically suspicious abnormality. [id number] Electronically Signed: Orion Guerra, at 12:44 EDT , Service support ,
== END ==
PROVIDERS: Family Provider Family Medicine; PCP Family Medicine; Referring Provider Family Medicine; Visit Provider Family Medicine
DX: Z12.31 Encounter for screening mammogram for malignant neoplasm of breast (principal)
CPT/HCPCS: 77063; 77067

== ENCOUNTER 2019-10-25 13:30 | Outpatient (RCR) | payer BC, SELFPAY ==
--- NOTE | 2019-10-11 14:27 | HP.PTEVAL ---
Patient's Visit Information YELITZA RUVALCABA is a 48 year old F referred to Physical Therapy by Gerardo Parker MD with a diagnosis of Cervical Pain. Date of Evaluation: 10/11/19 Physical Therapist: Kassi Samuel DPT - Visit Plan Frequency: 2x /Week Duration: 4 Weeks Plan: Focus on scapular strength/stabilization. HEP: Postural education, chin tucks, scapular retractions, deep neck flexors, prone 6, mid row, LAE, bilateral ER, pec corner stretch - Subjective Subjective: Patient reports that she has herniated discs and has an opposite curve. She was told the only way to fix that is to have a ACDF. The symptoms as she gets older is getting worse. Pain comes and goes. When she sleeps funny she gets severe headaches and she feels that her right arm is weak. If she lays down to bench press the first on is rough and as she continues it gets better. She bought a new pillow that gives traction which helps a lot. He wanted her to come here for a home traction unit. She works out a lot and wants to have an exercise program. She can go for months and have no symptoms and other times she has them a lot. Last time she had symptoms was about 3 weeks ago. But its been doing better since then. Agg: sleep wrong or move wrong. Pain is located between the shoulder blades- stabbing pains. N/T down the right arm. All the way to the fingers. 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 Last time she had a GALLARDO was a month ago-pain is located in the occipit and goes up and around the the forehead- both sides- severe throbbing- has had them for a long time. Usually if she stretches her neck or lays in a position for a long period of time it releases. Right hand dominate. 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 Sleep: disturbed when it bother hers- likes to sleep on her side but if her neck is really painful she has to sleep on her back. Uses her pillow for traction. Has been using her neck pillow the last 6 months and has noticed she has had less symptoms. No blurred vision or dizziness. Works out at the [employer] 4-6 days week-prefers free weights-runner (8-10 miles a week- 5k at a time-on a TM but prefers roads and trails. The treadmill hurts more PMHX: DM. Meds: Metformin. - Objective Posture: FH, RS- can correct but does not maintain. Gait: no deviation- good arm swing and rotation. ROM: Cervical and Shoulder: WNL in all planes. Sensation: WNL. Strength: Core: fair minus, Scapular: fair minus, Shoulder: 4+/5 bilaterally, Elbow: 5/5, Wrist: 5/5 Condominium Manager: Left and Right: 60, 50,60. Special Test: Empty Can: positive, Impingment: positive, Compression: negative, Distraction: negative. Flex: Levator: moderate, Upper Trap: moderate - Goals Goal 1:: Patient will be I with HEP and progression Goal Time Frame: 4-6 Weeks Goal 2:: Patient will maintain proper posture t/o tx session to demo increased scap s/s Goal Time Frame: 4-6 Weeks Goal 3:: Patient will report 0/10 pain for 1 week Goal Time Frame: 4-6 Weeks - Rehabilitation Potential Physical Therapy Diagnosis: Patient presents with hypomobility-she has decreased scapular stabilization leading to poor posture and increased pain with ADL's intermittently Rehabilitation Potential: Good - Anticipated Interventions Patient/Client Instruction: Educate patient on: Benefits of Fitness Program Therapeutic Exercise to Include: Strength training, Endurance training, Body mechanics, Postural training, Passive ROM, Active ROM, Scapular Strength/Stabilization For the Purpose of:: To improve muscle performance and motor function Thank you for the opportunity to evaluate your patient. For Medicare and Medicare HMO plans, please review the plan of care and approve it. It will need to be FAXED BACK to us at [phone] for Medicare purposes. For Medicare only, by signing this I certify the plan of care. Please let me know if there are questions or concerns regarding this plan of care. Physician Signature: Date:
--- NOTE | 2019-12-20 08:46 | HP.PT.NRP ---
YELITZA RUVALCABA was seen in my office for initial evaluation on 10/11/19. The following Plan of Care was established for this patient: Initial Frequency: 2x /Week Initial Duration: 4 Weeks Patient/Client Instruction: Educate patient on: Benefits of Fitness Program Therapeutic Exercise to Include: Strength training, Endurance training, Body mechanics, Postural training, Passive ROM, Active ROM, Scapular Strength/Stabilization For the Purpose of:: To improve muscle performance and motor function This patient was last seen in our office . Pertinent comments regarding their Physical therapy will appear below: Patient has not attended physical therapy in over 4 weeks- appropriate for d/c. Return to MD for further evaluation as needed. At this point I will be discontinuing this patient from physical therapy. I would be happy to see this patient again in the future if found appropriate by the physician. Thank you! Kassi Samuel DPT
== END 2019-10-25 19:00 | disposition home or self-care (01) ==
LOC: PT 13:30
PROVIDERS: PCP Family Medicine; Referring Provider Family Medicine; Visit Provider Family Medicine
DX: M50.80 Other cervical disc disorders, unspecified cervical region (principal)
CPT/HCPCS: 97012; 97110; 97162

== ENCOUNTER 2019-11-15 10:00 | Outpatient (RCR) | payer BC, SELFPAY | END 2019-11-17 23:59 | LOC: NS 10:00 | PROVIDERS: PCP Family Medicine; Visit Provider Family Medicine | DX: Z71.3 Dietary counseling and surveillance (principal); R73.03 Prediabetes | CPT/HCPCS: 97802; 97803 ==

== ENCOUNTER 2019-12-06 09:06 | Outpatient (RCR) | payer BC, SELFPAY | END 2019-12-18 23:59 | LOC: NS 09:06 | PROVIDERS: PCP Family Medicine; Visit Provider Family Medicine | DX: Z71.3 Dietary counseling and surveillance (principal); R73.03 Prediabetes | CPT/HCPCS: 97803 ==

== ENCOUNTER 2020-03-05 12:00 | Outpatient (RCR) | payer BC, SELFPAY | END 2020-03-05 23:59 | disposition home or self-care (01) | LOC: NS 12:00 | PROVIDERS: PCP Family Medicine; Visit Provider Family Medicine | DX: Z71.3 Dietary counseling and surveillance (principal); R73.03 Prediabetes | CPT/HCPCS: 97802; 97803 ==

== ENCOUNTER → 2020-12-13 17:05 | Outpatient (CLI) | payer BC, SELFPAY ==
--- NOTE | 2020-12-13 17:08 | RAD_ITS ---
STUDY: X-RAY - LEFT ANKLE REASON FOR EXAM: Female, 50 years old. ANKLE PAIN TECHNIQUE: 3 view(s) of the ankle. COMPARISON: None. FINDINGS: Normal visualized distal tibia and fibula. Normal medial and lateral malleoli. Normal tibiotalar articulation and ankle mortise. Normal visualized talus and calcaneus. The visualized subtalar, talonavicular, calcaneocuboid and tarsal articulations are normal. The soft tissue structures are unremarkable. RAD/Ankle min 3 Views IMPRESSION: Normal x-ray examination of the ankle. Electronically Signed: Isaac Rudd MD at 16:51 EDT Tel , Service support ,
--- NOTE | 2020-12-13 17:09 | RAD_ITS ---
STUDY: X-RAY - LEFT FOOT CLINICAL: Female, 50 years old. PAIN TECHNIQUE: 3 view(s) of the foot. COMPARISON: None. FINDINGS: Normal talus, calcaneus, and tarsal bones. Normal visualized subtalar, talonavicular, calcaneocuboid, tarsal and tarsometatarsal articulations. Normal metatarsi. Normal metatarsophalangeal joint of the great toe. There is a bipartite tibial sesamoid. Normal interphalangeal joint of the great toe. Normal phalanges of the great toe. Normal second through fifth metatarsophalangeal joints. Normal interphalangeal joints and phalanges of the lesser toes. The soft tissue structures are unremarkable. RAD/Foot min 3 Views IMPRESSION: Normal x-ray examination of the foot. Electronically Signed: Isaac Rudd MD at 16:52 EDT Tel , Service support ,
== END ==
PROVIDERS: PCP Family Medicine; Referring Provider Family Medicine; Visit Provider Family Medicine
DX: M25.572 Pain in left ankle and joints of left foot (principal); M79.672 Pain in left foot
CPT/HCPCS: 73610; 73630

== ENCOUNTER → 2021-03-27 12:09 | Outpatient (CLI) | payer BC, SELFPAY | PROVIDERS: PCP Family Medicine; Referring Provider Family Medicine; Visit Provider Family Medicine | DX: R09.89 Other specified symptoms and signs involving the circulatory and respiratory systems (principal) | CPT/HCPCS: 87635; U0005; U0003 ==

== ENCOUNTER 2021-08-13 08:52 | Outpatient (CLI) | payer BC, SELFPAY ==
[2021-08-13 10:32] LABS: ALB/GLOB Ratio 0.9 RATIO (0.9-2.4); AST(SGOT) 21 U/L (15-37); Alanine Aminotransfer ALT/SGPT 25 U/L (13-56); Albumin, Serum 3.7 g/dL (3.2-5.0); Alkaline Phosphatase 58 U/L (45-117); Anion Gap 8 (5-15); BUN 16 mg/dL (7-18); BUN/Creat Ratio 21.1 RATIO (10-20); Chloride 105 mmol/L (98-107); Cholesterol 205 mg/dL (200); Creatinine, Serum 0.76 mg/dL (0.55-1.02); EST Glomerular Filtration Rate 86 mL/min (>60); Est Glom Filt Rate - Afr Amer 104 mL/min (>60); Globulin 4.3 g/dL (2.2-4.2); Glucose 100 mg/dL (74-106); High Density Lipoprotein 60 mg/dL; Potassium 4.2 mmol/L (3.5-5.1); Sodium Level 137 mmol/L (136-145); Triglycerides 176 mg/dL; Very Low Density Lipoprotein 35 mg/dL (5-40)
== END 2021-08-13 23:59 | disposition short-term general hospital (02) ==
LOC: MFPLAB 08:55
PROVIDERS: PCP Family Medicine; Referring Provider Family Medicine; Visit Provider Family Medicine
DX: E78.1 Pure hyperglyceridemia (principal); E66.9 Obesity, unspecified; Z68.31 Body mass index [BMI] 31.0-31.9, adult
CPT/HCPCS: 36415; 80053; 80061; 84443

== ENCOUNTER 2021-09-27 07:00 | Outpatient (CLI) | payer BC, SELFPAY ==
--- NOTE | 2021-09-27 07:19 | BI_ITS ---
MAMMOGRAPHY - BILATERAL SCREENING REASON FOR EXAM: Female, 50 years old. Routine annual screening examination. PERTINENT HISTORY: Non-contributory. TECHNIQUE: Digital bilateral breast lyssa (3D mammographic acquisition) in the CC and MLO projections. 2-D mediolateral oblique (MLO) and craniocaudad (CC) views of both breasts were obtained. CAD: Full Field Digital Mammography with Computer Added Detection was performed. COMPARISON: Comparison is made with prior study dated 10/25/2019 and 10/23/2018 FINDINGS: Breast Composition: The breasts are extremely dense, which lowers the sensitivity of mammography. There are no dominant masses or suspicious calcifications. Medial benign appearing bilateral axillary lymph nodes. No other significant abnormalities are identified. There has been no significant change since the prior study. BI/SCRN MAMM (CAD)W/LYSSA BILAT IMPRESSION: Stable bilateral screening mammogram. Yearly follow-up mammogram recommended. (A) ASSESSMENT CATEGORY: BIRADS Category 2: Benign. A letter regarding these results will be sent to the patient by the facility within 30 days. Approximately 10% of breast cancers are not detected by mammography. A normal mammogram should not delay biopsy of a clinically suspicious abnormality. [id number] Electronically Signed: Orion Guerra MD at 8:59 EST ,
== END 2021-09-27 23:59 | disposition home or self-care (01) ==
LOC: OPBI 07:18
PROVIDERS: PCP Family Medicine; Referring Provider Family Medicine; Visit Provider Family Medicine
DX: Z12.31 Encounter for screening mammogram for malignant neoplasm of breast (principal)
CPT/HCPCS: 77063; 77067

== ENCOUNTER → 2022-08-28 | Outpatient (CLI) | payer BC, SELFPAY ==
[2022-09-05 18:46] LABS: HPV HC, High Risk Negative
== END | disposition home or self-care (01) ==
PROVIDERS: PCP Family Medicine; Visit Provider Family Medicine
DX: L03.032 Cellulitis of left toe (principal)
CPT/HCPCS: 87624; 88175; G0145

== ENCOUNTER → 2023-02-12 | Outpatient (CLI) | payer BC, SELFPAY ==
[2023-02-12 10:54] LABS: AST(SGOT) 17 U/L (15-37); Alanine Aminotransfer ALT/SGPT 21 U/L (13-56); Albumin, Serum 3.8 g/dL (3.2-5.0); Alkaline Phosphatase 57 U/L (45-117); Anion Gap 8 (5-15); BUN 17 mg/dL (7-18); BUN/Creat Ratio 19.3 RATIO (10-20); Calcium,Total 9.1 mg/dL (8.5-10.1); Chloride 105 mmol/L (98-107); Cholesterol 230 mg/dL (200); Creatinine, Serum 0.88 mg/dL (0.55-1.02); EST Glomerular Filtration Rate 72 mL/min (>60); Est Glom Filt Rate - Afr Amer 87 mL/min (>60); Globulin 3.8 g/dL (2.2-4.2); Glucose 96 mg/dL (74-106); High Density Lipoprotein 62 mg/dL; Potassium 4.4 mmol/L (3.5-5.1); Protein, Total 7.6 g/dL (6.4-8.2); Sodium Level 140 mmol/L (136-145); Thyroid Stim Hormone (TSH) 1.78 uIU/mL (0.358-3.74); Triglycerides 191 mg/dL; Very Low Density Lipoprotein 38 mg/dL (5-40)
== END | disposition home or self-care (01) ==
LOC: MFPLAB 08:26
PROVIDERS: PCP Family Medicine; Visit Provider Family Medicine
DX: Z00.01 Encounter for general adult medical examination with abnormal findings (principal)
CPT/HCPCS: 36415; 80053; 80061; 84443

== ENCOUNTER → 2023-08-17 | Outpatient (CLI) | payer BC, SELFPAY ==
--- OUTSIDE RECORDS SUMMARY | 2023-08-17 09:07 | XMS RPT_ITS | CCD ---
Author Name Unknown Address [address] [place] [address] Organization [facility] Care Team Providers Care Punch Operator Name Role Phone Parker, Ce Unavailable Unavailable Parker, Ce Unavailable Unavailable Valdez, Saurabh Unavailable Unavailable Barraza, Howard Unavailable Unavailable Parker, Ce Unavailable Unavailable Parker, Ce Unavailable Unavailable Barraza, Howard Unavailable Unavailable Parker, Ce Unavailable Unavailable Parker, Ce Unavailable Unavailable Parker, Ce Unavailable Unavailable Parker, Ce Unavailable Unavailable Barraza, Howard Unavailable Unavailable Parker, Ce Unavailable Unavailable Parker, Ce Unavailable Unavailable Parker, Ce Unavailable Unavailable Guzman, Manas Unavailable Unavailable Parker, Ce Unavailable Unavailable Parker, Ce Unavailable Unavailable Guzman, Manas Unavailable Unavailable Parker, Ce Unavailable Unavailable Parker, Ce Unavailable Unavailable Guzman, Manas Unavailable Unavailable Parker, Ce Unavailable Unavailable Parker, Ce Unavailable Unavailable Guzman, Manas Unavailable Unavailable Parker, Ce Unavailable Unavailable Parker, Ce Unavailable Unavailable Guzman, Manas Unavailable Unavailable Parker, Ce Unavailable Unavailable Parker, Ce Unavailable Unavailable Alexandr Parkeric A Primary Care Provider Ce Parker A Primary Care Provider [phone] CE PARKER Attending Unavailable BRONSON, CE Referring Unavailable BRONSON CE Primary Care Unavailable Problems Active Problems Problem Classification Problem Date Documented Da te Episodic/Chronic Abdominal pain (2 sources) Pelvic and perineal pain; Translations: [Pelvic and perineal pain] Onset: 02-01-2018 Complications of surgical procedures or medical care (2 sources) Infection following a procedure, initial encounter; Translations: [Infection following a procedure, initial encounter] Onset: 03-15-2018 Episodic Endometriosis (2 sources) Endometriosis, unspecified; Translations: [Endometriosis, unspecified] Onset: 02-18-2018 Chronic Female infertility (2 sources) Female infertility, unspecified; Translations: [Female infertility, unspecified] Onset: 02-18-2018 Chronic Other female genital disorders (2 sources) Unspecified condition associated with female genital organs and menstrual cycle; Translations: [Unsp cond assoc w female genital organs and menstrual cycle] Onset: 05-04-2018 Episodic Other screening for suspected conditions (not mental disorders or infectious disease) (4 sources) Patient encounter status; Translations: [Encounter for screening mammogram for malignant neoplasm of breast] Onset: 10-07-2022 Episodic Ovarian cyst (2 sources) Unspecified ovarian cyst, right side; Translations: [Unspecified ovarian cyst, right side] Onset: 02-18-2018 Septicemia (2 sources) Sepsis, unspecified organism; Translations: [Sepsis, unspecified organism] Onset: 02-25-2018 Unclassified (2 sources) Abnormal radiologic findings on diagnostic imaging of right kidney; Translations: [Abnormal radiologic findings on dx imaging of r kidney] Onset: 05-04-2018 Past or Other Problems Problem Classification Problem Date Documented Da te Episodic/Chronic Abdominal pain (5 sources) Right lower quadrant pain; Translations: [Pain in female pelvis] Onset: 02-01-2018 05-03-2022 Episodic Bacterial infection (2 sources) Other specified bacterial agents as the cause of diseases classified elsewhere; Translations: [Oth bacterial agents as the cause of diseases classd elswhr] Onset: 02-25-2018 Episodic Benign neoplasm of uterus (2 sources) Leiomyoma of uterus, unspecified; Translations: [Leiomyoma of uterus, unspecified] Onset: 02-18-2018 Episodic Deficiency and other anemia (2 sources) Anemia, unspecified; Translations: [Anemia, unspecified] Onset: 02-25-2018 Episodic Inflammatory diseases of female pelvic organs (3 sources) Abscess of female pelvis; Translations: [Female pelvic inflammatory disease, unspecified] Onset: 03-04-2018 05-03-2022 Episodic Other female genital disorders (2 sources) Personal history of other diseases of the female genital tract; Translations: [Personal history of oth diseases of the female genital tract] Onset: 02-01-2018 Episodic Other gastrointestinal disorders (2 sources) Peritoneal adhesions (postprocedural) (postinfection); Translations: [Peritoneal adhesions (postprocedural) (postinfection)] Onset: 02-18-2018 Episodic Other gastrointestinal disorders (2 sources) Constipation, unspecified; Translations: [Constipation, unspecified] Onset: 02-25-2018 Episodic Peritonitis and intestinal abscess (2 sources) Peritoneal abscess; Translations: [Peritoneal abscess] Onset: 02-25-2018 Episodic Septicemia (except in labor) (6 sources) Sepsis; Translations: [Sepsis, unspecified organism] Onset: 02-25-2018 05-03-2022 Episodic Results Test Name Value Interpretation Reference Range Facil ity Vital Signs Date Time Vital Sign Value Performing Clinician Faci lity 10-07-2022 15:04-0400 Body height 160 cm Ce Parker Work Phone: [facility] 10-07-2022 15:04-0400 Body mass index (BMI) [Ratio] 31.89 kg/m2 Ce Parker Work Phone: [facility] 10-07-2022 15:04-0400 Body weight 81.65 kg Ce Parker Work Phone: [facility] Encounters Encounter Date Encounter Type Care Provider Facility Start: 10-07-2022 End: 10-08-2022 ambulatory CE PARKER [facility] Start: 10-07-2022 End: 10-07-2022 Subsequent hospital visit by physician Ce Parker Work Phone: [facility] Procedures Date Procedure Procedure Detail Performing Clinician Start: 10-07-2022 Mammography eC Parker Work Phone: Start: 03-08-2018 Microscopic examinat ion of blood, culture Ce Parker Plan of Treatment Date Care Activity Detail Author Start: 03-13-2024 DTaP/Tdap/Td Vaccine s (2 - Td or Tdap) DTaP/Tdap/Td Vaccines (2 - Td or Tdap) [facility] Start: 10-08-2023 Screening for malign ant neoplasm of breast Mammogram [facility] Start: 03-20-2023 Influenza vaccination Influenz a Vaccine (Season Ended) [facility] Start: 2022 Zoster Vaccines (1 of 2) Zoste r Vaccines (1 of 2) [facility] Start: 03-20-2022 Influenza vaccination Influenza Vacc ine (#1) [facility] Start: 02-07-2021 COVID-19 Vaccine (3 - Booster for Moderna series) COVID-19 Vaccine (3 - Booster for Moderna series) [facility] Start: 2012 Screening for malign ant neoplasm of breast Mammogram [facility] Start: 2002 Screening for malign ant neoplasm of cervix [facility] Start: 1993 Screening for malign ant neoplasm of cervix Pap Smear [facility] Start: 1990 Hepatitis C screening Hepatitis C Sc reening [facility] Start: 1984 Depression Screening Depression Scre ening [facility] Start: 1973 MMR Vaccines (1 of 1 - Standard series) MMR Vaccines (1 of 1 - Standard series) [facility] Start: 1972 Hepatitis B Vaccines (1 of 3 - 3-dose series) Hepatitis B Vaccines (1 of 3 - 3-dose series) [facility] Start: 1972 HIV screening HIV Screening [facility] Start: 1972 Screening for malign ant neoplasm of colon [facility] End: 10-07-2022 DBT Breast - bilateral screening [facility] Work Phone: Immunizations Immunization Date Immunization Notes Care Provider Fa [facility] 05-11-2020 influenza virus vacc ine, unspecified formulation Ce Parker Work Phone: [facility] Payers Date Payer Category Payer Unknown 2022 Unknown [id number] 1970 Unknown [id number] 2.16.8 [id number] 1972 Unknown [id number] 2.16.8 [id number] 1972 Unknown [id number] 2.16.8 [id number] 1972 Unknown [id number] 2.16.8 [id number] 1972 Unknown [id number] 2.16.8 [id number] 1972 Unknown [id number] 2.16.8 [id number] 1972 Unknown [id number] 2.16.8 [id number] 1972 Unknown [id number] 2.16.8 [id number] 1972 Unknown [id number] 2.16.8 [id number] 1972 Unknown [id number] 2.16.8 [id number] Social History Date Type Detail Facility Tobacco smoking status NHIS Never smoked tobacco [facility] Start: 03-30-2018 End: 10-07-2022 Alcohol intake Current drinker of alcohol (finding) [facility] Start: 03-30-2018 End: 10-07-2022 Alcohol intake [facility] Start: 1970 Sex Assigned At Not on file [facility] Start: 09-27-2022 End: 10-07-2022 Exposure to SARS-CoV-2 (event) Not sure [facility] Start: 10-07-2022 Tobacco use panel [facility] Evaluation note Note Date & Type Note Facility documented in this encounter [facility] Evaluation note Note Date & Type Note Facility documented in this encounter [facility] Summary Purpose Family History No Family History Records FoundNo Family History Records FoundNo Family History Records Found Advance Directives No Advanced Directives Records FoundNo Advanced Directives Records FoundNo Advanced Directives Records Found Hospital Course Note Gill Box Operator Discharge SummaryPatient Name: Sushila AstudilloPatient : 1970[facility] Physician: CE PARKERAdmit Date: 02/25/2018Attending Provider: Charlee Guerra Diagnosis: SepsisOther Diagnosis: Abdomino-pelvic abscess, non- PIDSepsis (HCC) [A41.9]Patient Active Problem ListDiagnosis? Sepsis (HCC)? Septicemia (HCC)? Female pelvic pain? Pelvic abscess in femalePelvic Abscess - Unable to Determine if related to recent procedureSurgical Operations & Procedures: CT guided pelvic abscess aspiration 02/28, Leftarm PICC line placed 03/04Consultations: Infectious Diseases (02/28)Pertinent Findings & Procedures:Sushila Astudillo is a 47 y.o. female , admitted for abdominal pain andsepsis. Patient is s/p diagnostic laparoscopy, lysis of adhesions and myomectomyon 02/18/18 for endometriosis. Operative report showed that during the time of thesurgical there was spontaneous rupture of a right endometrioma; surgery wasuncomplicated. Patient presented to an OSH on POD#7 for pers (more content not included)... Additional Source Comments INFORMATION SOURCE (unrecogn ized section and content) DATE CREATED AUTHOR AUTHOR'S ORGANIZ ATION 04/20/2020 [facility] DATE CREATED AUTHOR AUTHOR'S ORGANIZ ATION 12/30/2022 [facility] Care Teams (unrecognized sec tion and content) Punch Operator Relationship Specialty Start Date End Date Ce Parker [address] [facility] [address] [place] [id number] PCP - General 10/30/16 Punch Operator Relationship Specialty Start Date End Date Ce Parker [address] [facility] [address] [place] [phone] PCP - General 10/30/16 FOR RECORDS PERTAINING TO PATIENTS WHO ARE OR HAVE BEEN ENROLLED IN A CHEMICAL DEPENDENCY/SUBSTANCEABUSE PROGRAM, SOME INFORMATION MAY BE OMITTED. This clinical summary was aggregated from multiple sources. Caution should be exercised in using it in the provision of clinical care. This summary normalizes information from multiple sources, and as a consequence, information in this document may materially change the coding, format and clinical context of patient data. In addition, data may be omitted in some cases. CLINICAL DECISIONS SHOULD BE BASED ON THE PRIMARY CLINICAL RECORDS. [facility] [employer] [facility]. provides no warranty or guarantee of the accuracy or completeness of information in this document.
[2023-08-17 10:54] LABS: ALB/GLOB Ratio 0.9 RATIO (0.9-2.4); AST(SGOT) 13 U/L (15-37); Alanine Aminotransfer ALT/SGPT 17 U/L (13-56); Albumin, Serum 3.6 g/dL (3.2-5.0); Alkaline Phosphatase 55 U/L (45-117); Anion Gap 4 (5-15); BUN 16 mg/dL (7-18); BUN/Creat Ratio 16.1 RATIO (10-20); Calcium,Total 9.1 mg/dL (8.5-10.1); Chloride 108 mmol/L (98-107); Creatinine, Serum 0.99 mg/dL (0.55-1.02); EST Glomerular Filtration Rate 63 mL/min (>60); Est Glom Filt Rate - Afr Amer 76 mL/min (>60); Globulin 4.1 g/dL (2.2-4.2); Glucose 84 mg/dL (74-106); Lipase 55 U/L (13-75); Potassium 4.3 mmol/L (3.5-5.1); Protein, Total 7.7 g/dL (6.4-8.2); Sodium Level 139 mmol/L (136-145); Thyroid Stim Hormone (TSH) 2.02 uIU/mL (0.358-3.74)
== END | disposition home or self-care (01) ==
LOC: MFPLAB 08:46
PROVIDERS: PCP Family Medicine; Visit Provider Family Medicine
DX: E88.810 Metabolic syndrome (principal); E66.9 Obesity, unspecified; Z79.899 Other long term (current) drug therapy
CPT/HCPCS: 36415; 80053; 83690; 84443

== ENCOUNTER → 2024-04-18 | Outpatient (CLI) | payer BC, SELFPAY ==
--- NOTE | 2024-04-18 16:02 | BI_ITS ---
MAMMOGRAPHY - BILATERAL SCREENING REASON FOR EXAM: Female, 53 years old. Routine annual screening examination. PERTINENT HISTORY: Non-contributory. TECHNIQUE: Digital bilateral breast lyssa (3D mammographic acquisition) in the CC and MLO projections. 2-D mediolateral oblique (MLO) and craniocaudad (CC) views of both breasts were obtained. CAD: Full Field Digital Mammography with Computer Added Detection was performed. COMPARISON: Comparison is made with prior study dated September 27, 2021 and October 25, 2019. FINDINGS: Breast Composition: The breasts are extremely dense, which lowers the sensitivity of mammography. There are no dominant masses or suspicious calcifications. Stable benign-appearing bilateral axillary lymph nodes. No other significant abnormalities are identified. There has been no significant change since the prior study. BI/SCRN MAMM (CAD)W/LYSSA BILAT IMPRESSION: Stable bilateral screening mammogram. Yearly follow-up mammogram recommended. (A) ASSESSMENT CATEGORY: BIRADS Category 2: Benign. A letter regarding these results will be sent to the patient by the facility within 30 days. Approximately 10% of breast cancers are not detected by mammography. A normal mammogram should not delay biopsy of a clinically suspicious abnormality. [id number] Electronically Signed: Orion Guerra MD at 8:35 EDT ,
== END | disposition home or self-care (01) ==
PROVIDERS: PCP Family Medicine; Referring Provider Family Medicine; Visit Provider Family Medicine
DX: Z12.31 Encounter for screening mammogram for malignant neoplasm of breast (principal)
CPT/HCPCS: 77063; 77067

== ENCOUNTER 2024-06-13 07:30 | Outpatient (RCR) | payer BC, SELFPAY ==
--- NOTE | 2024-05-02 07:40 | HP.PTEVAL_ITS ---
Patient's Visit Information Visit Information Visit Information: YELITZA RUVALCABA is a 53 year old F referred to Physical Therapy by Erik Weinstein PA-C with a diagnosis of R shoulder pain. Date of Evaluation: 05/02/24 Physical Therapist: Gerardo Mccarty, DPT, OCS, CSCS Visit Plan Frequency: 1-2x /Week Duration: 4-6 Weeks Plan: 1-2x/week(pt wishes to start 1) for progression of ex to strength Rc and s cap once motion is improved and pain down. IE: HEP given supine stick flexion 15x and seated stick er ROM 15x to add to current scap cirlces, pendulum, ex all 3x/day and avoid aggravating activities next session give [id number] if improved, OR increase to 2x/week for US, manual if not improving. Subjective Subjective: Went to Thursday 6 days ago ER. Got cortisone injection Thursday which did not help, called back and got meds including antiinflammatory and pain pill tramadol which has helped. Pain at rest 09/26. 75% better than last Thursday. Did a lot of yard work Thursday may have been factor. Sleep is Ok for the last two nights. 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 Pain R anterior shoulder: Pain Intensity (Out of 10): 1 Pain Intensity Range: 1 and 7 Objective Objective: [facility], Good balance. cervical aROM 45 ext, 45 R rotation 48 L rotation, fullk B SB, some discomfort with L SB but good overall, - c/s compression test. elbow and wrist and hand AROM B WFL L shoulder AROM WFL R shoulder is hesitant to elevate AROM past 90 with paiin, er is hesitant and painful end range at 50 and IR is slow but not painful. PROM to 140 elevation R shoulder + HK, + neer, - sulcus tender to touch supraspinatus and body of supra and infraspinatus R. reflexes 2/3 bi and tri sensation WNL gross light touch B UE. Balance/Special Test Scores Quick DASH Score: 36.3625 Goals Goal 1:: Full aROM R shoulder without pain or hesitation Goal Time Frame: 4-6 Weeks Goal 2:: I appropriate HEP for strength posture Rc and upper half to minimize future problems Goal Time Frame: 4-6 Weeks Goal 3:: quickdash score 13 or less Goal Time Frame: 4-6 Weeks Goal 4:: Pt fee back to 100% of normal activities Goal Time Frame: 4-6 Weeks Rehabilitation Potential Physical Therapy Diagnosis: r shoulder pain and limited ROM limiting comfortable funciton Rehabilitation Potential: Fair Anticipated Interventions Patient/Client Instruction: Educate patient on: Condition and Plan of Care For the Purpose of:: To decrease pain, To increase ROM and To increase tolerance to activity/condition/position Therapeutic Exercise to Include: Strength training, Postural training, Flexibilty training, Passive ROM and Active ROM For the Purpose of:: To decrease pain, To increase ROM, To improve nutrient delivery to tissue, To improve muscle performance and motor function and To increase tolerance to activity/condition/position Manual Therapy Techniques to Include: Mobilization, Passive ROM and Soft tissue mobilization For the Purpose of:: To decrease pain, To increase ROM and To improve nutrient delivery to tissue Ultrasound (thermal/non thermal): Yes (nonthermal R shoulder) For the Purpose of:: To decrease pain, To decrease swelling/inflammation and To improve nutrient delivery to tissue Text: Thank you for the opportunity to evaluate your patient. For Medicare and Medicare HMO plans, please review the plan of care and approve it. It will need to be FAXED BACK to us at [phone] for Medicare purposes. For Medicare only, by signing this I certify the plan of care. Please let me know if there are questions or concerns regarding this plan of care. Physician Signature: Date:
--- NOTE | 2024-05-23 07:48 | HP.PTREVAL ---
Re-Evaluation Intro: Erik Weinstein PA-C, It has been my pleasure to treat YELITZA RUVALCABA over the last 4 visits for R shoulder pain. Please see the progress note below for an update on the physical therapy plan of care! Subjective Subjective: 3x since last week with HEP. I still feel it. will get MRI once approval received. Pain over weekend 3/10 intermittently, worse with basketball playing. Life has been really busy and only gotten exercises in 3x since last session. saw soctor last week adn will get MRI next week.Sleeping is OK for the most part. Has not needed pain pill. Life is normal just has to be careful, shot underhanded instead of overhanded. Given options in PT, wishes to hold until after MRI. Objective Objective/Function: Has near full PROM in r shoulder but painful end range flexcion to wincing and er. Slow and hesitant AROM er and elevation with painful arc causing wincing. Strength is 4- er R with pain, 3+ elevation with pain flexiona dn abduction. - ext rotation lag test, slight + labral testing R. Plan Plan Plan: pt wishes to hold until after MRI and get s options from doctor, will continue YTB ex in meantime and call after doctor visit. overall 70% better in pain but function is still not significantly better. Balance/Gait/Functional tests Balance/Special Test Scores Quick DASH Score: 31.8175 Goals Goals Goal 1:: Full aROM R shoulder without pain or hesitation Goal Time Frame: 4-6 Weeks Goal Progress: Not Progressing Goal 2:: I appropriate HEP for strength posture Rc and upper half to minimize future problems Goal Time Frame: 4-6 Weeks Goal Progress: copmpliance Goal 3:: quickdash score 13 or less Goal Time Frame: 4-6 Weeks Goal 4:: Pt fee back to 100% of normal activities Goal Time Frame: 4-6 Weeks Anticipated Interventions Anticipated Interventions Patient/Client Instruction: Educate patient on: Condition and Plan of Care For the Purpose of:: To decrease pain, To increase ROM and To increase tolerance to activity/condition/position Therapeutic Exercise to Include: Strength training, Postural training, Flexibilty training, Passive ROM and Active ROM For the Purpose of:: To decrease pain, To increase ROM, To improve nutrient delivery to tissue, To improve muscle performance and motor function and To increase tolerance to activity/condition/position Manual Therapy Techniques to Include: Mobilization, Passive ROM and Soft tissue mobilization For the Purpose of:: To decrease pain, To increase ROM and To improve nutrient delivery to tissue Ultrasound (thermal/non thermal): Yes (nonthermal R shoulder) For the Purpose of:: To decrease pain, To decrease swelling/inflammation and To improve nutrient delivery to tissue Re-Evaluation Ending Re-evaluation ending: Please do not hesitate to contact me at [phone] by phone or if you have questions or concerns regarding this new plan of care! Sincerely, Gerardo Mccarty, DPT, OCS, CSCS
--- NOTE | 2024-06-13 07:50 | HP.PTDCSUM ---
Discharge Summary D/C summary: It has been my pleasure to treat YELITZA RUVALCABA referred by Erik Weinstein PA-C, with the diagnosis of R shoulder pain for a total of 6 visit(s). Discharge Date: 06/13/24 Please see the following information for a summary of their discharge status. Subjective Subjective: 3/10 pain at rest which is pretty typical. Wakes her up at night if rolls on R. Doing exercises daily. Activities: more cautious. Driving hurts and typing. Not able to change the way she does those things. Pain R anterior shoulder: Pain Intensity (Out of 10): 3 Overall Improvement % Improvement: 75 Objective Objective/Function: 95 AROM flexion and 90 abduction self limited by pain, er full adn IR full but painful end range on R. strength is 3+ in flexion adn abd with pain, er 4- and ir 4 with pain with er. + drop arm, - ext rotation lag. Pt very frustrated with pain and wishes for next step with doctor. Goals Goal 1:: Full aROM R shoulder without pain or hesitation Goal Progress: Not Progressing Goal 2:: I appropriate HEP for strength posture Rc and upper half to minimize future problems Goal Progress: copmpliance Goal 3:: quickdash score 13 or less Goal Progress: Progressing Goal 4:: Pt fee back to 100% of normal activities Goal Progress: 75% Plan Plan: d/c to HEP and pt to contact doctor regarding next step D/C Information d/c sentence: If there are questions or concerns regarding this patient's physical therapy, please feel free to call me at [phone]. Thank you for the referral of this patient. Sincerely, Gerardo Mccarty, DPT, OCS, CSCS Balance/Gait/Functional tests Balance/Special Test Scores Quick DASH Score: 29.5450 Improvement % Improvement: 75
== END 2024-06-13 19:00 | disposition home or self-care (01) ==
LOC: PT 07:30
PROVIDERS: PCP Family Medicine; Referring Provider Physician Assistant; Visit Provider Physician Assistant
DX: M75.01 Adhesive capsulitis of right shoulder (principal); M25.511 Pain in right shoulder
CPT/HCPCS: 97110; 97161; 97530